=== PATIENT | female | born 1990 | race Caucasian/White ===

== ENCOUNTER 2019-05-22 07:48 | Emergency (ER) | payer SELFPAY ==
[~2019-05-22] VITALS: Ht 162.6 cm; Wt 59.0 kg
--- NOTE | 2019-05-22 08:25 | PHYS DOC ---
Past History Past Medical History: No Pertinent History Past Surgical History: No Surgical History Smoking: Non-smoker Alcohol Use: None Drug Use: Marijuana Social History Narrative: weekly marijuana use Adult General Chief Complaint Chief Complaint: VAGINAL BLEEDING HPI HPI Patient is a 28-year-old female presents complaining of vaginal bleeding that started yesterday with some pelvic cramping. She is , with her last menstrual period being 03/22/2019 which lasted 6 days, and then she had a shorter than usual episode of bleeding on 04/02/2019 which lasted 2 days. Approximately 2 weeks ago she was seen in [facility] and had a positive urine test along with an ultrasound that showed a sac, no heartbeat at that point. She was started on vitamins at that time. She denies any dysuria or hematuria. She is 2 para 0010 with a miscarriage of her first . She believes her blood type is O+.[] Review of Systems Review of Systems Constitutional: Denies fever or chills [] Eyes: Denies change in visual acuity, redness, or eye pain [] HENT: Denies nasal congestion or sore throat [] Respiratory: Denies cough or shortness of breath [] Cardiovascular: No chest pain or palpitations[] GI: Denies abdominal pain, nausea, vomiting, bloody stools or diarrhea [] : Denies dysuria or hematuria, see history of present illness [] Musculoskeletal: Denies back pain or joint pain [] Integument: Denies rash or skin lesions [] Neurologic: Denies headache, focal weakness or sensory changes [] Endocrine: Denies polyuria or polydipsia [] All other systems were reviewed and found to be within normal limits, except as documented in this note. Current Medications Current Medications Current Medications Medications (Trade) Dose Ordered Sig/Frank Start Time Stop Time Status Last Admin Dose Admin Sodium Chloride 500 ml @ 500 mls/hr Q1H 05/22/19 08:30 Allergies Allergies Allergies Coded Allergies Type Severity Reaction Last Updated Verified No Known Drug Allergies 05/22/19 No Physical Exam Physical Exam Constitutional: Well developed, well nourished, no acute distress, non-toxic appearance. [] HENT: Normocephalic, atraumatic, bilateral external ears normal, oropharynx mois t, no oral exudates, nose normal. [] Eyes: PERRLA, EOMI, conjunctiva normal, no discharge. [] Neck: Normal range of motion, no tenderness, supple, no stridor. [] Cardiovascular:Heart rate regular rhythm, no murmur [] Lungs & Thorax: Bilateral breath sounds clear to auscultation [] Abdomen: Bowel sounds normal, soft, no tenderness, no masses, no pulsatile masses. Pelvic exam performed with embedded software test engineer: External genitalia, Winigan's glands, urethra, and Bartholin's glands: Normal, no rash or lesions. Vaginal vault: Minimal blood. No lesions. Cervix: Closed os, no active bleeding, no cervical motion tenderness.[] Skin: Warm, dry, no erythema, no rash. [] Back: No tenderness, no CVA tenderness. [] Extremities: No tenderness, no cyanosis, no clubbing, ROM intact, no edema. [] Neurologic: Alert and oriented X 3, normal motor function, normal sensory function, no focal deficits noted. [] Psychologic: Affect normal, judgement normal, mood normal. [] Current Patient Data Vital Signs Vital Signs Date Time Temp Pulse Resp B/P (MAP) Pulse Ox O2 Delivery O2 Flow Rate FiO2 05/22/19 08:07 98.1 69 20 98 Room Air EKG EKG [] Radiology/Procedures Radiology/Procedures PROCEDURE: OB <14 WKS W/TV Indication:Vaginal bleeding. Previous scan 2 weeks ago at outside facility showed gestation sac and no pole. TECHNIQUE: Ultrasound OB less than 14 weeks. COMPARISON: None FINDINGS: Anteverted uterus measuring 9.2 x 3.8 x 6.0 cm. Cervix is closed. Right ovary measures 1.2 x 4.0 x 1.4 cm and shows evidence of blood flow. Left ovary measures 2.7 x 2.0 x 2.2 cm and shows evidence of blood flow. Single intrauterine gestation sac is seen which is oval-shaped corresponding to estimated gestation age of 6 weeks 0 day. No yolk sac or pole seen. No subchorionic bleed. IMPRESSION: Single intrauterine gestation sac with estimated gestation age of 6 weeks 0 day. No pole or yolk sac seen. Differential diagnosis includes early or failed first trimester . Correlate with beta-hCG. Follow-up ultrasound recommended.[] Course & Med Decision Making Course & Med Decision Making Pertinent Labs and Imaging studies reviewed. (See chart for details) ED course: Patient arrived, was placed in bed, and tolerated exam well. The exam was performed with embedded software test engineer. She was transported to and from radiology with any complications. After return of laboratory and imaging findings, these were discussed with the patient. Consultation was made with [facility] for follow-up and they will see her Saturday or Saturday this next week. Findings and plan were discussed with the patient who voiced understanding. All questions were answered. She was discharged in improved condition. Medical decision making: Patient has threatened miscarriage versus a blighted ovum. There is no evidence of an ectopic . We will cover her for bacterial vaginosis as noted on the wet prep. She has close follow-up. She is being discharged with appropriate precautions.[] Dragon Disclaimer Dragon Disclaimer This electronic medical record was generated, in whole or in part, using a voice recognition dictation system. Departure Departure: Impression: Primary Impression: Threatened miscarriage Additional Impressions: Blighted ovum Bacterial vaginosis Disposition: HOME, SELF-CARE Condition: IMPROVED Referrals: PCP,NO (PCP) Patient Instructions: Bacterial Vaginosis, Blighted Ovum, Threatened Miscarriage Additional Instructions: Follow-up with your regular doctor in 2-3 days. If you do not have a primary care physician, follow-up with Dr. Odonnell. [facility] [address] [place] [address] If you do not have health insurance, there is an expectation of $75 at the time of visit. Your quantitative level was 3059 today. This should double every 2-3 days any normal . This needs to be monitored to ensure denies going up or to be followed as it goes to 0. Return to the ER if worsening pain or any other concerns. Scripts Metronidazole (METRONIDAZOLE) 500 Mg Tablet 1 TAB PO BID for BV for 7 Days, #14 TAB 0 Refills Prov: MARIELLE GALAN DO 05/22/19 Problem Qualifiers MARIELLE GALAN DO May 22, 2019 08:25
[2019-05-22] MEDS ORDERED: IV NORMAL SALINE 500ML 500 ML IV SCH (08:30)
[2019-05-22 08:48] LABS: BASO % 1 % (0-3); EOS # 0.1 x10^3/uL (0.0-0.7); EOS % 1 % (0-3); HEMATOCRIT 40.8 % (36.0-47.0); HEMOGLOBIN 13.7 g/dL (12.0-15.5); LYMPH # 2.2 x10^3/uL (1.0-4.8); LYMPH % 26 % (24-48); MEAN CORPUSCULAR HEMOGLOBIN 31 pg (25-35); MEAN CORPUSCULAR HGB CONC 34 g/dL (31-37); MEAN CORPUSCULAR VOLUME 93 fL (79-100); MONO # 0.6 x10^3/uL (0.0-1.1); MONO % 7 % (0-9); NEUT # 5.5 x10^3uL (1.8-7.7); NEUT % 65 % (31-73); PLATELET COUNT 250 x10^3/uL (140-400); RED CELL DISTRIBUTION WIDTH 12.9 % (11.5-14.5); WHITE BLOOD COUNT 8.4 x10^3/uL (4.0-11.0)
[2019-05-22 09:02] LABS: ALBUMIN 3.7 g/dL (3.4-5.0); ALBUMIN/GLOBULIN RATIO 1.2 (1.0-1.7); CALCIUM 8.9 mg/dL (8.5-10.1); CREATININE 0.6 mg/dL (0.6-1.0); GFR 120.8; POTASSIUM 3.8 mmol/L (3.5-5.1); TOTAL BILIRUBIN 0.5 mg/dL (0.2-1.0); TOTAL PROTEIN 6.9 g/dL (6.4-8.2)
[2019-05-22 09:08] LABS: BILIRUBIN,URINE NEG (NEG); CLARITY,URINE CLEAR; COLOR,URINE YELLOW; GLUCOSE,URINE NEG (NEG)
[2019-05-22 09:09] LABS: BACTERIA,URINE MOD /HPF (0-FEW); NITRITE,URINE NEG (NEG); RBC,URINE RARE /HPF (0-2); SQUAMOUS EPITHELIAL CELL,UR FEW /LPF; UROBILINOGEN,URINE 0.2 mg/dL (0.2 mg/dL)
--- NOTE | 2019-05-22 09:31 | RAD ---
Indication:Vaginal bleeding. Previous scan 2 weeks ago at outside facility showed gestation sac and no pole. TECHNIQUE: Ultrasound OB less than 14 weeks. COMPARISON: None FINDINGS: Anteverted uterus measuring 9.2 x 3.8 x 6.0 cm. Cervix is closed. Right ovary measures 1.2 x 4.0 x 1.4 cm and shows evidence of blood flow. Left ovary measures 2.7 x 2.0 x 2.2 cm and shows evidence of blood flow. Single intrauterine gestation sac is seen which is oval-shaped corresponding to estimated gestation age of 6 weeks 0 day. No yolk sac or pole seen. No subchorionic bleed. IMPRESSION: Single intrauterine gestation sac with estimated gestation age of 6 weeks 0 day. No pole or yolk sac seen. Differential diagnosis includes early or failed first trimester . Correlate with beta-hCG. Follow-up ultrasound recommended. Electronically signed by: Dixon Bowles DO (05/22/2019 9:28 AM) [id number]
[2019-05-22] MEDS ORDERED: METR-34 PO (10:05)
[2019-05-22 10:30] VITALS: BP 105/61
== END 2019-05-22 10:30 | disposition home or self-care (01) ==
LOC: ER 07:48
DX: O20.0 Threatened abortion (principal); O02.0 Blighted ovum and nonhydatidiform mole; O23.591 Infection of other part of genital tract in pregnancy, first trimester; B96.89 Other specified bacterial agents as the cause of diseases classified elsewhere; Z3A.01 Less than 8 weeks gestation of pregnancy
CPT/HCPCS: 36415; 76801; 76817; 80053; 81001; 81025; 84702; 85025; 86900; 86901; 87086; 87491; 87591; 99285; Q0111; 87186